=== PATIENT | male | born 1960 | race African-American/Black ===

== ENCOUNTER 2017-10-07 11:24 | Emergency (ER) | payer MEDICAID ==
[~2017-10-07] VITALS: Ht 177.8 cm; Wt 82.0 kg
[~2017-10-07 11:24] MED LIST: AMIT25TA9 PO; AMLO10TA80 PO; ATEN1TAB42 PO; CYCL5TAB PO; GABA-290 PO; HYDR-3933 PO; HYDR-4134 PO; IBUP-2030 PO; OMEP20CA10 PO; PHEN100C4 PO; POTA10CA42 PO; TAMS0.4C31 PO
[2017-10-07 12:40] LABS: BASOPHILS % 0.8 % (0.0-2.0); EOSINOPHILS % 1.5 % (0.0-5.0); HEMATOCRIT. 34.1 % (42.0-52.0); HEMOGLOBIN. 11.8 g/dL (14.0-18.0); LYMPHOCYTES % 31.7 % (20.0-50.0); MEAN CORPUSCULAR HEMOGLOBIN 33.6 pg (28.0-32.0); MEAN CORPUSCULAR VOLUME 97.4 fL (80.0-94.0); MEAN PLATELET VOLUME 7.5 fl (7.4-10.4); MONOCYTES % 9.6 % (2.0-8.0); NEUTROPHILS % 56.4 % (40.0-76.0); PLATELET 168 x1000/uL (130-400); RED CELL DISTRIBUTION WIDTH 14.4 % (11.6-14.6)
[2017-10-07 12:43] LABS: CHLORIDE 106 mEq/L (98-107)
[2017-10-07 12:48] LABS: ETHANOL BLOOD < 10 mg/dL
[2017-10-07 12:50] LABS: PHOSPHORUS 4.3 mg/dL (2.5-4.9)
[2017-10-07 12:59] LABS: CLARITY URINE CLEAR (CLEAR); COLOR URINE YELLOW (YELLOW); KETONES URINE NEGATIVE (NEGATIVE); LEUKOCYTE ESTERASE URINE NEGATIVE (NEGATIVE); NITRITE URINE NEGATIVE (NEGATIVE); OCCULT BLOOD URINE NEGATIVE (NEGATIVE); PH URINE 5.5 (4.5-8.0); PROTEIN URINE NEGATIVE (NEGATIVE); UROBILINOGEN URINE 0.2 E.U./dL (0.2-1.0)
[2017-10-07] MEDS ORDERED: PHENYTOIN SODIUM EXTENDED 100MG CAPSULE PO ONE (13:15)
[2017-10-07] MEDS ORDERED: PHENYTOIN SODIUM 1,000 MG in SODIUM CHLORIDE 0.9% 100 ML IV ONE (14:00)
[2017-10-07 16:23] VITALS: BP 147/99
== END 2017-10-07 16:25 | disposition home or self-care (01) ==
LOC: ER 11:32
DX: R56.9 Unspecified convulsions (principal); I10 Essential (primary) hypertension; R20.0 Anesthesia of skin
CPT/HCPCS: 36415; 80053; 80185; 81003; 82962; 83690; 83735; 84100; 85025; 96365; 99284; G0482; J1165; Z7610; J7050